=== PATIENT | male | born 1975 | race Caucasian/White ===

== ENCOUNTER → 2017-03-07 | Outpatient (CLI) | payer OTHER ==
[~2017-03-07] MED LIST: ISOVUE-370 76% 100ML VIAL (Q9967) As Ordered
== END ==
LOC: M RAD 07:29
DX: R05 Cough (principal)
CPT/HCPCS: Q9967

== ENCOUNTER 2018-01-06 11:31 | Emergency (ER) | payer OTHER ==
[2018-01-06 12:12] LABS: BASO % 0.4 % (0.0-1.0); EOS # 0.2 10^3/uL (0.0-0.50); EOS % 2.1 % (0.0-3.0); HEMATOCRIT 42.6 % (42.0-52.0); HEMOGLOBIN 14.5 g/dl (13.5-17.5); IMMATURE GRANULOCYTE % 0.3 % (0-3.0); LYMPH # 1.6 10^3/uL (1.5-4.5); LYMPH % 22.9 % (24.0-44.0); MEAN CORPUSCULAR HEMOGLOBIN 30.1 pg (27.0-33.0); MEAN CORPUSCULAR VOLUME 88.6 fl (80.0-96.0); MONO # 0.6 10^3/uL (0.0-0.8); MONO % 8.8 % (0.0-5.0); NEUTROPHILS # 4.7 10^3/uL (1.8-7.7); NEUTROPHILS % 65.5 % (36.0-66.0); PLATELET COUNT, AUTOMATED 227 10^3/uL (150-450); RED BLOOD COUNT 4.81 10^6/uL (4.30-6.10); RED CELL DISTRIBUTION WIDTH 12.5 % (11.5-14.5); WHITE BLOOD COUNT 7.1 10^3/uL (4.0-10.0)
[2018-01-06 12:35] LABS: ALBUMIN 3.9 GM/DL (3.2-5.2); ALKALINE PHOSPHATASE 84 U/L (45-117); ALT/SGPT 25 U/L (12-78); ANION GAP 6 MEQ/L (8-16); AST/SGOT 12 U/L (7-37); BILIRUBIN,DIRECT < 0.1 MG/DL (0.0-0.2); BILIRUBIN,TOTAL 0.4 MG/DL (0.2-1.0); BLOOD UREA NITROGEN 14 MG/DL (7-18); CALCIUM LEVEL 8.8 MG/DL (8.5-10.1); CARBON DIOXIDE LEVEL 28 MEQ/L (21-32); CHLORIDE LEVEL 110 MEQ/L (98-107); CREATININE FOR GFR 0.96 MG/DL (0.70-1.30); GLOMERULAR FILTRATION RATE > 60.0 (>60); GLUCOSE, FASTING 92 MG/DL (70-100); LIPASE 121 U/L (73-393); POTASSIUM SERUM 3.8 MEQ/L (3.5-5.1); SODIUM LEVEL 144 MEQ/L (136-145); TOTAL PROTEIN 6.5 GM/DL (6.4-8.2)
[2018-01-06] MEDS ORDERED: ISOVUE-370 76% 100ML VIAL (Q9967) As Ordered (13:04)
[2018-01-06 13:21] LABS: KETONE, URINE AUTO RFX NEGATIVE (NEGATIVE); LEUKOCYTE ESTERASE UR AUTO RFX NEGATIVE (NEGATIVE); MUCUS, URINE RFX SMALL (NEGATIVE); NITRITE, URINE AUTO RFX NEGATIVE (NEGATIVE); RBC, URINE AUTO RFX 2 /HPF (0-3); SPECIFIC GRAVITY UR AUTO RFX 1.012 (1.002-1.035); SQUAM EPITHELIAL CELL UR AURFX 0 /HPF (0-6); WBC, URINE AUTO RFX 0 /HPF (0-3)
[2018-01-06] MEDS: LevoFLOXacin 500 MG TABLET PO (14:00)
[2018-01-06] MEDS: ONDANSETRON 4 MG ORAL DISINTEGRATING TAB (Q0162 PER 1MG) PO (14:00)
== END 2018-01-06 14:17 | disposition home or self-care (01) ==
LOC: M ED 11:31
DX: K62.89 Other specified diseases of anus and rectum (principal); N45.1 Epididymitis; K21.9 Gastro-esophageal reflux disease without esophagitis
CPT/HCPCS: Q9967

== ENCOUNTER → 2018-01-30 | Outpatient (REF) | payer OTHER ==
[~2018-01-30] MED LIST changes: -ISOVUE-370 76% 100ML VIAL (Q9967) As Ordered; +LEVA1TAB2 PO; +ZOFR4TAB14 SL
[2018-01-30 19:17] LABS: APPEARANCE, URINE HAZY (CLEAR); BACTERIA, URINE AUTO NEGATIVE (NEGATIVE); BILIRUBIN, URINE AUTO NEGATIVE (NEGATIVE); BLOOD, URINE BLOOD NEGATIVE (NEGATIVE); COLOR, URINE YELLOW (YELLOW); GLUCOSE, URINE (UA) AUTO NEGATIVE (NEGATIVE); KETONE, URINE AUTO NEGATIVE (NEGATIVE); LEUKOCYTE ESTERASE, URINE AUTO NEGATIVE (NEGATIVE); NITRITE, URINE AUTO NEGATIVE (NEGATIVE); PROTEIN, URINE AUTO NEGATIVE (NEGATIVE); RBC, URINE AUTO 1 /HPF (0-3); SPECIFIC GRAVITY URINE AUTO 1.012 (1.002-1.035); SQUAMOUS EPITHELIAL CELL UR AU 0 /HPF (0-6); UROBILINOGEN, URINE AUTO 0.2 mg/dL (0.0-2.0); WBC, URINE AUTO 1 /HPF (0-3)
== END ==
LOC: M SMT 17:14
PROVIDERS: ATTEND Nurse Practitioner Women's Health
DX: N41.9 Inflammatory disease of prostate, unspecified (principal)
CPT/HCPCS: 81001; 87086; G0463

== ENCOUNTER → 2018-04-21 | Outpatient (REF) | payer OTHER | LOC: M SMT 18:48 | PROVIDERS: ATTEND Specialist | DX: Z30.09 Encounter for other general counseling and advice on contraception (principal) ==

== ENCOUNTER → 2018-09-23 | Outpatient (CLI) | payer OTHER ==
--- NOTE | 2018-09-29 10:46 | SLEEPCENT ---
DATE OF STUDY: 09/23/2018 ORDERED BY: LEN Arora Nocturnal polysomnography was performed for the titration of pressure therapy in this patient with obstructive sleep apnea syndrome and apnea-hypopnea index of 32.1. For testing, a SynAgile Simplus full-face mask of medium size was used and 6 cm of water pressure were applied to the circuit and the lights were extinguished. 7 hours and 33 minutes of data were reviewed. There were 407.5 minutes of sleep identified. Sleep latency was short at 7.5 minutes. Rapid eye movement (REM) sleep was delayed at 212 minutes. Sleep architecture improved with optimal pressure therapy. Overall sleep efficiency was 90.9%. The patient's electrocardiogram showed a sinus rhythm with an average heart rate of 64 beats per minute. Electroencephalogram (EEG) showed normal waveforms for awake and sleep. Respiratory events were reasonably well palliated with C-PAP at a pressure of +15. There was minimal limb activity. No trains of events were seen. IMPRESSION: Obstructive sleep apnea syndrome (G47.33). RECOMMENDATION: Nightly use of pressure therapy at 15 cm of water.
== END ==
LOC: M SLEEP 19:35
PROVIDERS: ATTEND Nurse Practitioner Family
DX: G47.33 Obstructive sleep apnea (adult) (pediatric) (principal)

== ENCOUNTER 2018-10-10 09:34 | Day surgery (SDC) | payer OTHER ==
[~2018-10-10] VITALS: Ht 185.4 cm; Wt 108.4 kg
[~2018-10-10 09:34] MED LIST changes: +BUPR150T3 PO; +DULC5TAB PO; +NS 1,000 ML IV ONE; +PANT40TA3 PO; +PARO30TA3 PO; +REFR0.5D8 OP
[2018-10-10] MEDS ORDERED: LIDOCAINE 2% INJ 100 MG/5 ML SDV (FOR ANES.) As Ordered ONE (10:32)
[2018-10-10] MEDS ORDERED: fentaNYL 100 MCG/2 ML INJECTION (J3010) As Ordered ONE (10:32)
[2018-10-10] MEDS ORDERED: propofoL 500 MG/50 ML VIAL As Ordered ONE (10:32)
--- NOTE | 2018-10-10 10:45 | ROOR ---
Patient Name: Gray Philippe Procedure Date: 10/10/2018 10:19 AM Date of : 1975 Age: 42 Room: [facility] Gender: Male Note Status: Finalized Procedure: Upper Endoscopy + Biopsies Indications: Heartburn, Exclusion of Maldonado's esophagus Providers: Chidi Leary MD Referring MD: TAL GRECO MD Requesting Provider: Medicines: Monitored Anesthesia Care Complications: No immediate complications. Procedure: Pre-Anesthesia Assessment: - The heart rate, respiratory rate, oxygen saturations, blood pressure, adequacy of pulmonary ventilation, and response to care were monitored throughout the procedure. The Endoscope was introduced through the mouth, and advanced to the second part of duodenum. The upper GI endoscopy was accomplished without difficulty. The patient tolerated the procedure well. Findings: The Z-line was variable and was found 35 cm from the incisors. Multiple biopsies were obtained with cold forceps for evaluation to rule out Maldonado's Esophagus randomly at the gastroesophageal junction. A medium-sized hiatal hernia was present. Localized mild inflammation characterized by congestion (edema) and erythema was found in the gastric antrum. Biopsies were taken with a cold forceps for histology. Biopsies were taken with a cold forceps for Helicobacter pylori testing. The exam of the duodenum was otherwise normal. Impression: - Z-line variable, 35 cm from the incisors. - Medium-sized hiatal hernia. - Mucosal changes suspicious for gastritis. Biopsied. - Multiple biopsies were obtained at the gastroesophageal junction. - The examination was otherwise normal. Recommendation: - Patient has a contact number available for emergencies. The signs and symptoms of potential delayed complications were discussed with the patient. Return to normal activities tomorrow. Written discharge instructions were provided to the patient. - High fiber diet. - Discharge patient to home. - Follow an antireflux regimen. - Continue present medications. - Await pathology results. - Telephone GI clinic for pathology results in 1 week. - Return to referring physician. - Check Portal Online for Path Results.([email or web address] - The findings and recommendations were discussed with the patient's family. Chidi Leary MD Chidi Leary MD 10/10/2018 10:44:52 AM Electronically signed by Chidi Leary MD Number of Addenda: 0 Note Initiated On: 10/10/2018 10:19 AM Estimated Blood Loss: Estimated blood loss: none.
--- NOTE | 2018-10-10 11:01 | ROOR ---
Patient Name: Gray Philippe Procedure Date: 10/10/2018 10:20 AM Date of : 1975 Age: 42 Room: [facility] [place] Gender: Male Note Status: Finalized Procedure: Total Colonoscopy to Cecum + Cold Snare Polypectomy + Hemoclip Indications: Rectal bleeding Providers: Chidi Leary MD Referring MD: TAL GRECO MD Requesting Provider: Medicines: Monitored Anesthesia Care Complications: No immediate complications. Procedure: Pre-Anesthesia Assessment: - The heart rate, respiratory rate, oxygen saturations, blood pressure, adequacy of pulmonary ventilation, and response to care were monitored throughout the procedure. The Colonoscope was introduced through the anus and advanced to the cecum, identified by appendiceal orifice and ileocecal valve. The colonoscopy was performed without difficulty. The patient tolerated the procedure well. The quality of the bowel preparation was excellent. Findings: The perianal and digital rectal examinations were normal. Non-bleeding internal hemorrhoids were found during retroflexion. The hemorrhoids were small and Grade I (internal hemorrhoids that do not prolapse). A small polyp was found at 50 cm proximal to the anus. The polyp was sessile. The polyp was removed with a cold snare. Resection and retrieval were complete. To prevent bleeding after the polypectomy, one hemostatic clip was successfully placed (MR conditional). There was no bleeding at the end of the procedure. The exam was otherwise without abnormality on direct and retroflexion views. Impression: - Non-bleeding internal hemorrhoids. - One small polyp at 50 cm proximal to the anus, removed with a cold snare. Resected and retrieved. Clip (MR conditional) was placed. - The examination was otherwise normal on direct and retroflexion views. - The exam was otherwise normal to the cecum. Recommendation: - Patient has a contact number available for emergencies. The signs and symptoms of potential delayed complications were discussed with the patient. Return to normal activities tomorrow. Written discharge instructions were provided to the patient. - High fiber diet. - Discharge patient to home. - Continue present medications. - Await pathology results. - Telephone GI clinic for pathology results in 1 week. - Check Portal Online for Path Results.([email or web address] - Repeat colonoscopy for surveillance based on pathology results. - The findings and recommendations were discussed with the patient's family. Chidi Leary MD Chidi Leary MD 10/10/2018 11:00:45 AM Electronically signed by Chidi Leary MD Number of Addenda: 0 Note Initiated On: 10/10/2018 10:20 AM Estimated Blood Loss: Estimated blood loss: none.
[2018-10-10 11:30] VITALS: BP 129/91
== END 2018-10-10 11:36 | disposition home or self-care (01) ==
LOC: M OPP 09:34
PROVIDERS: ATTEND Internal Medicine Gastroenterology
DX: K64.0 First degree hemorrhoids (principal); K63.5 Polyp of colon; K62.5 Hemorrhage of anus and rectum; K22.8 Other specified diseases of esophagus; K44.9 Diaphragmatic hernia without obstruction or gangrene; K31.89 Other diseases of stomach and duodenum; R12 Heartburn
CPT/HCPCS: 43239; 45385; 88305; J3010

== ENCOUNTER 2019-03-03 17:17 | Emergency (ER) | payer OTHER ==
[~2019-03-03] VITALS: Ht 185.4 cm; Wt 113.0 kg
[~2019-03-03 17:17] MED LIST changes: -NS 1,000 ML IV ONE
[2019-03-03] MEDS ORDERED: WELLTAB40 (17:28)
[2019-03-03] MEDS ORDERED: PARO10TA3 (17:28)
--- NOTE | 2019-03-03 18:46 | REPVR ---
PROCEDURE INFORMATION: Exam: US Scrotum Exam date and time: 03/03/2019 6:29 PM Age: 43 years old Clinical indication: Scrotum pain; Additional info: Right testicular pain TECHNIQUE: Imaging protocol: Real-time ultrasound of the scrotum and contents with color Doppler and image documentation. COMPARISON: Scrotal, US 01/06/2018 12:05 PM FINDINGS: Right testicle: The right testis is normal in appearance measuring 4.8 x 3.3 x 4.0 cm. There is probable calcification along the superior anterior medial margin measuring 2.5 mm. This is likely extratesticular. Blood flow is detected. Left testicle: The left testis is normal in appearance measuring 4.8 x 2.4 x 3.7 cm. Blood flow is detected. Epididymides: The right epididymal head is unremarkable. The body and tail of the right epididymis is thickened and hyperemic. The left epididymis is unremarkable. Scrotum: There are no hydroceles. There is a left varicocele. IMPRESSION: 1. Probable right epididymitis. 2. Normal appearance of the testes with blood flow detected bilaterally. 3. Probable left varicocele. Electronically signed by: Megan Pena On 03/03/2019 18:46:43 PM
[2019-03-03] MEDS ORDERED: BACT800T5 PO (19:39)
[2019-03-03 19:44] VITALS: BP 137/87
[2019-03-03] MEDS ORDERED: BACTRIM 160MG/800MG DS TAB PO ONE (20:00)
[2019-03-03 20:50] LABS: CHLAMYDIA DNA AMPLIFICATION NEGATIVE (NEGATIVE); GC DNA AMPLIFICATION NEGATIVE (NEGATIVE)
== END 2019-03-03 19:49 | disposition home or self-care (01) ==
LOC: M ED 17:17
DX: N45.1 Epididymitis (principal); Z88.8 Allergy status to other drugs, medicaments and biological substances

== ENCOUNTER → 2019-07-30 | Outpatient (CLI) | payer OTHER ==
[~2019-07-30] MED LIST changes: +BACT800T5 PO; +PARO10TA3; +WELLTAB40
--- NOTE | 2019-07-30 08:27 | REP ---
Clinical: Dyspnea . Comparison: None . Technique: PA and lateral. Findings: The mediastinum and cardiac silhouette are normal. The lung blevins are clear and without acute consolidation, effusion, or pneumothorax. The skeletal structures are intact and normal. Impression: 1. No acute cardiopulmonary process. Electronically Signed by Stew Pacheco MD 07/30/2019 08:19 A
--- NOTE | 2019-07-30 09:04 | PFTRPT ---
Visit Date: 07/30/2019 Referring Doctor: PACHECO OSHEA Height: 73.00 Inches Weight: 235.00 Lbs BSA: 2.30 Diagnosis: R05 Spirometry: Pre and post bronchodilator study of excellent technical quality. Forced vital capacity normal. FEV1 in proportion. Obstructive index is, therefore, normal. Flow Volume Loop: Expiratory limb of the flow volume loop is normal. No significant bronchodilator response is identified. Lung Volumes: Total lung capacity is mildly elevated. Residual volume is in proportion. Diffusing Capacity: Diffusing capacity is mildly elevated as well. Hemoglobin: Hemoglobin acceptable at 13.3. Airway Mechanics: Airway resistance and conductance are normal. IMPRESSION: Mild elevation diffusing capacity requires clinical correlation. MTDD
== END ==
LOC: M CARPUL 07:32
PROVIDERS: ATTEND Nurse Practitioner Family
DX: R05 Cough (principal)

== ENCOUNTER → 2019-08-04 | Outpatient (CLI) | payer OTHER ==
[~2019-08-04] MED LIST changes: +METHACHOLINE KIT (J7674) INH ONE
--- NOTE | 2019-08-04 09:26 | PFTRPT ---
Height: 73.00 Inches Weight: 235.00 Lbs BSA: 2.30 Diagnosis: R05 DATE OF PROCEDURE: 08/04/2019 ORDERED BY: Krys Heard INTERPRETATION: Study of excellent technical quality. Under protocol, methacholine was administered. Even after a maximal dose of 25 mg or 188.875 CDUs, no provocation dose ever achieved. IMPRESSION: Negative methacholine challenge study. MTDD
== END ==
LOC: M CARPUL 08:34
PROVIDERS: ATTEND Nurse Practitioner Family
DX: R05 Cough (principal)
CPT/HCPCS: 94070; J7674

== ENCOUNTER 2020-04-17 07:25 | Emergency (ER) | payer OTHER ==
[~2020-04-17] VITALS: Ht 185.4 cm; Wt 110.7 kg
[~2020-04-17 07:25] MED LIST changes: +BUPR150T12 PO; -BUPR150T3 PO; -METHACHOLINE KIT (J7674) INH ONE; +PANT40TA29 PO; -PANT40TA3 PO
[2020-04-17] MEDS ORDERED: PARO40TA2 (07:34)
[2020-04-17] MEDS ORDERED: GABA-282 (07:34)
[2020-04-17] MEDS ORDERED: HYDR-3363 (07:34)
[2020-04-17] MEDS ORDERED: CELE1CAP9 (07:34)
[2020-04-17] MEDS ORDERED: PANTOPRAZOLE 40MG VIAL (C9113 PER 1) IV ONE (07:50)
[2020-04-17] MEDS ORDERED: GI COCKTAIL 50ML BTL(HYOSCYAMINE/MAALOX/LIDOCAINE VISCOUS)(1:3:1) PO ONE (07:50)
[2020-04-17 08:14] LABS: BASO # 0.1 10^3/uL (0.0-0.2); EOS # 0.1 10^3/uL (0.0-0.5); EOS % 1.8 % (0.0-3.0); HEMATOCRIT 40.6 % (42.0-52.0); HEMOGLOBIN 13.7 g/dl (13.5-17.5); LYMPH # 1.5 10^3/uL (1.5-5.0); LYMPH % 28.6 % (24.0-44.0); MEAN CORPUSCULAR HEMOGLOBIN 30.1 pg (27.0-33.0); MEAN CORPUSCULAR HGB CONC 33.7 g/dl (32.0-36.5); MEAN CORPUSCULAR VOLUME 89.2 fl (80.0-96.0); MONO # 0.5 10^3/uL (0.0-0.8); MONO % 8.8 % (2.0-8.0); NEUTROPHILS # 3.1 10^3/uL (1.5-8.5); NEUTROPHILS % 59.4 % (36.0-66.0); PLATELET COUNT, AUTOMATED 225 10^3/uL (150-450); RED BLOOD COUNT 4.55 10^6/uL (4.30-6.10); WHITE BLOOD COUNT 5.1 10^3/uL (4.0-10.0)
[2020-04-17 08:47] LABS: ALBUMIN 3.5 GM/DL (3.2-5.2); ALT/SGPT 38 U/L (12-78); BILIRUBIN,DIRECT < 0.1 MG/DL (0.0-0.2); BILIRUBIN,TOTAL 0.2 MG/DL (0.2-1.0); LIPASE 115 U/L (73-393); TOTAL PROTEIN 6.7 GM/DL (6.4-8.2)
[2020-04-17] MEDS ORDERED: SUCRALFATE SUSP 1GM/10ML UD PO ONE (09:15)
--- NOTE | 2020-04-17 10:10 | REP ---
INDICATION: ?liver lesion seen prior CT. COMPARISON: CT 01/06/2018. TECHNIQUE: Real-time sonographic evaluation of right upper quadrant performed. FINDINGS: Along the inner wall of the gallbladder there is an echogenic nonshadowing area measuring 16 x 4 mm. This could represent adherent echogenic sludge or a polyp. There is no intrahepatic or extrahepatic biliary dilatation, common bile duct measures 4 mm in maximum diameter. In the inferior right lobe of the liver, at the site of the previously identified liver nodule, there is an echogenic nodule which measures 1.5 x 1.7 x 1.9 cm, most consistent with a hemangioma, stable compared to the prior study. The pancreas is not visualized due to overlying bowel gas. The right kidney demonstrates no hydronephrosis, with a normal size of 12.2 cm in length. No free fluid is seen. IMPRESSION: Adherent echogenic sludge or polyp along the inner wall of the gallbladder measures 16 x 4 mm. Recommend follow-up ultrasound of the gallbladder in 6 months. Stable nodule inferior right lobe of the liver most compatible with hemangioma. <Electronically signed by Abe Phelan > 04/17/20 [id number]
[2020-04-17] MEDS ORDERED: SUCR1SS PO (10:25)
[2020-04-17 10:43] VITALS: BP 158/90
--- NOTE | 2020-04-17 15:59 | ED PDOC ---
Post-Departure Follow-Up radiology report faxed to Jonathon Luna Sarah MD Apr 17, 2020 15:58
--- NOTE | 2020-04-17 20:07 | ECGEPIP ---
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
== END 2020-04-17 10:44 | disposition home or self-care (01) ==
LOC: M ED 07:25
DX: R03.0 Elevated blood-pressure reading, without diagnosis of hypertension (principal); R10.9 Unspecified abdominal pain; R00.1 Bradycardia, unspecified; K76.89 Other specified diseases of liver; R93.2 Abnormal findings on diagnostic imaging of liver and biliary tract; Z79.899 Other long term (current) drug therapy; Z88.8 Allergy status to other drugs, medicaments and biological substances
CPT/HCPCS: 76705; 80047; 80076; 83690; 85025; 93005; 96374; 99284; C9113

== ENCOUNTER → 2020-06-29 | Outpatient (CLI) | payer OTHER ==
[~2020-06-29] MED LIST changes: +CELE1CAP9; +GABA-282; +HYDR-3363 PO; +PARO40TA2; +SERT-141 PO; +SUCR1SS PO; +SUCR1TA PO
--- NOTE | 2020-06-29 16:45 | REP ---
INDICATION: UPPER ABDOMINAL PAIN, UNSPECIFIED. COMPARISON: Ultrasound 04/17/2020. TECHNIQUE/RADIOTRACER AND DOSE: Following the intravenous administration of 6.5 mCi technetium 99 M mebrofenin, multiple images of the right upper quadrant performed up to 3 hours post injection. FINDINGS: Radiotracer is excreted into the biliary system and there is free flow into the duodenum. At no point is there evidence of gallbladder visualization up to 3 hours post injection. IMPRESSION: Nonvisualization of the gallbladder up to 3 hours post injection. The findings suggest cholecystitis. <Electronically signed by Abe Phelan > 06/29/20 [id number]
== END ==
LOC: M RAD 12:17
PROVIDERS: ATTEND Internal Medicine Gastroenterology
DX: R10.9 Unspecified abdominal pain (principal)
CPT/HCPCS: 78226; A9537

== ENCOUNTER → 2020-07-01 | Outpatient (CLI) | payer OTHER | LOC: M LABSMTC 10:57 | PROVIDERS: ATTEND Anesthesiology | DX: Z01.812 Encounter for preprocedural laboratory examination (principal); Z20.822 Contact with and (suspected) exposure to COVID-19 ==